=== PATIENT | female | born 2000 | race Caucasian/White ===

== ENCOUNTER 2023-11-25 14:41 | Observation (INO) ==
[2023-11-25 15:50] LABS: Hematocrit 27.1 % (35-45); Hemoglobin 9.6 g/dL (11.5-14.3); Mean Corpuscular Hemoglobin 32.4 pg (27-33); Mean Corpuscular Hgb Conc 35.6 g/dL (31-36); Mean Corpuscular Volume 91.1 fL (80-97); Red Blood Count 2.97 10^6/uL (3.63-4.92); Red Cell Distribution Width 20.3 % (12-17); White Blood Count 0.2 10^3/uL (3.8-11.8)
[2023-11-25 16:22] LABS: ABS Lymphocytes 0.2 10^3/uL (1.0-4.8); Eosinophil % 1.4 %; Lymphocyte % 96.8 %; Mean Platelet Volume 12.2 fL (7.5-11.2); Platelet Count 12 10^3/uL (150-450)
[2023-11-26 00:19] LABS: Mean Platelet Volume 8.9 fL (7.5-11.2); Platelet Count 18 10^3/uL (150-450)
[2023-11-26 07:39] LABS: Hematocrit 23.4 % (35-45); Hemoglobin 8.5 g/dL (11.5-14.3); Mean Corpuscular Hemoglobin 32.9 pg (27-33); Mean Corpuscular Hgb Conc 36.2 g/dL (31-36); Mean Corpuscular Volume 90.9 fL (80-97); Mean Platelet Volume 9.4 fL (7.5-11.2); Platelet Count 17 10^3/uL (150-450); Red Blood Count 2.57 10^6/uL (3.63-4.92); Red Cell Distribution Width 19.7 % (12-17); White Blood Count 0.2 10^3/uL (3.8-11.8)
[2023-11-26 07:54] LABS: Albumin 4.2 g/dL (3.2-5.2); Albumin/Globulin Ratio 1.6 (1-3); Calcium 9.1 mg/dL (8.6-10.3); Creatinine, Serum 0.54 mg/dL (0.51-0.95); Globulin 2.6 g/dL (2-4); Potassium 4.2 mmol/L (3.5-5.0); Total Bilirubin 0.6 mg/dL (0.2-1.0); Total Protein 6.8 g/dL (6.4-8.9); eGFR CKD-EPI 130.9 (>60)
[2023-11-26 08:43] LABS: ABS Lymphocytes 0.2 10^3/uL (1.0-4.8); Eosinophil % 0.2 %; Lymphocyte % 97.3 %
[2023-11-26 13:12] VITALS: BP 108/82
== END 2023-11-26 13:55 | disposition home or self-care (01) ==
LOC: MED 14:41 → CHOA 14:41
PROVIDERS: ADMIT Internal Medicine Hematology & Oncology; ATTEND Internal Medicine Hematology

== ENCOUNTER 2023-11-29 08:03 | Inpatient (IN) ==
[2023-11-29] MEDS: Cefepime 1 GM in Dextrose 1 GM/50 ML BAG IV ONE (09:04)
[2023-11-29] MEDS: Lactated Ringers 1000 ml BAG 1,000 ML IV ONE ×2 (09:05→10:26)
[2023-11-29 09:42] LABS: Hematocrit 20.7 % (35-45); Hemoglobin 7.6 g/dL (11.5-14.3); Mean Corpuscular Hemoglobin 32.2 pg (27-33); Mean Corpuscular Hgb Conc 36.8 g/dL (31-36); Mean Corpuscular Volume 87.7 fL (80-97); Mean Platelet Volume 9.8 fL (7.5-11.2); Platelet Count 16 10^3/uL (150-450); Red Blood Count 2.36 10^6/uL (3.63-4.92); Red Cell Distribution Width 19.2 % (12-17); White Blood Count 0.1 10^3/uL (3.8-11.8)
[2023-11-29 10:00] LABS: Albumin 4.2 g/dL (3.2-5.2); Albumin/Globulin Ratio 1.4 (1-3); C Reactive Protein 209.64 mg/L (<8.01); Calcium 8.8 mg/dL (8.6-10.3); Creatinine, Serum 0.83 mg/dL (0.51-0.95); Globulin 2.9 g/dL (2-4); Total Bilirubin 0.9 mg/dL (0.2-1.0); Total Protein 7.1 g/dL (6.4-8.9); eGFR CKD-EPI 100.3 (>60)
[2023-11-29] MEDS: Vancomycin 1,500 MG in NS 0.9% 250 ml 250 ML IVPB ONE (10:08)
[2023-11-29 10:22] LABS: ABS Lymphocytes 0.1 10^3/uL (1.0-4.8); Eosinophil % 1.3 %; Lymphocyte % 83.2 %
[2023-11-29] MEDS ORDERED: Vancomycin 1,000 MG in NS 0.9% 250 ml 250 ML IVPB ONE (11:50)
[2023-11-29] MEDS ORDERED: Vancomycin per Pharmacy 1 EA NOTE FOLLOW UP SCH (12:00)
[2023-11-29 12:50] LABS: Urine Appearance Clear; Urine Bilirubin Negative (Negative); Urine Blood Negative (Negative); Urine Color Light-Yellow; Urine Glucose Negative (Negative); Urine Ketones Negative (Negative); Urine Nitrite Negative (Negative); Urine Protein Trace (Negative); Urine Specific Gravity 1.012 (1.002-1.030); Urine Urobilinogen Negative (Negative); Urine pH 5.5 (5.0-8.0)
[2023-11-29] MEDS ORDERED: Magnesium Hydroxide LIQ 30 ML UDC PO PRN (13:21)
[2023-11-29 13:23] LABS: Calcium 8.2 mg/dL (8.6-10.3); Creatinine, Serum 0.65 mg/dL (0.51-0.95); eGFR CKD-EPI 125.2 (>60)
[2023-11-29] MEDS: Potassium Chlor 20 meq TAB.ER PO ONE (13:43)
[2023-11-29] MEDS: Lactated Ringers 1000 ml BAG 1,000 ML IV SCH (13:49)
[2023-11-29] MEDS: Vancomycin 1,250 MG in NS 0.9% 250 ml 250 ML IVPB SCH (17:52)
[2023-11-29] MEDS: Ondansetron ODT 4 mg TAB 4 MG TAB PO PRN (18:42)
[2023-11-29] MEDS: Cefepime 2 GM in Dextrose 2 GM/50 ML BAG IV SCH (21:40)
[2023-11-30 06:55] LABS: Calcium 9.1 mg/dL (8.6-10.3); Creatinine, Serum 0.54 mg/dL (0.51-0.95); Potassium 3.6 mmol/L (3.5-5.0); eGFR CKD-EPI 130.9 (>60)
[2023-11-30 06:58] LABS: Hematocrit 17.7 % (35-45); Hemoglobin 6.4 g/dL (11.5-14.3); Mean Corpuscular Hemoglobin 31.9 pg (27-33); Mean Corpuscular Hgb Conc 36.4 g/dL (31-36); Mean Corpuscular Volume 87.5 fL (80-97); Mean Platelet Volume 10.9 fL (7.5-11.2); Platelet Count 10 10^3/uL (150-450); Red Blood Count 2.02 10^6/uL (3.63-4.92); Red Cell Distribution Width 19.1 % (12-17); White Blood Count 0.2 10^3/uL (3.8-11.8)
[2023-11-30 07:28] LABS: ABS Lymphocytes 0.1 10^3/uL (1.0-4.8); ABS Neutrophils 0.1 10^3/uL (1.5-7.6); Eosinophil % 0.2 %; Lymphocyte % 45.7 %; Nucleated Red Blood Cells % 0.5 %/100WBC (0.0-0.8)
[2023-11-30] MEDS: Vancomycin Trough Check NOTE FOLLOW UP ONE (09:20)
[2023-11-30] MEDS: Vancomycin 1,500 MG in NS 0.9% 250 ml 250 ML IVPB SCH ×2 (19:21→22:44)
[2023-12-01 06:41] LABS: Calcium 8.5 mg/dL (8.6-10.3); Creatinine, Serum 0.55 mg/dL (0.51-0.95); Potassium 3.4 mmol/L (3.5-5.0); eGFR CKD-EPI 130.4 (>60)
[2023-12-01 07:23] LABS: Hematocrit 17.6 % (35-45); Hemoglobin 6.5 g/dL (11.5-14.3); Mean Corpuscular Hemoglobin 31.9 pg (27-33); Mean Corpuscular Hgb Conc 36.7 g/dL (31-36); Mean Corpuscular Volume 86.8 fL (80-97); Red Blood Count 2.03 10^6/uL (3.63-4.92); White Blood Count 0.6 10^3/uL (3.8-11.8)
[2023-12-01 07:51] LABS: Mean Platelet Volume 9.8 fL (7.5-11.2); Platelet Count 13 10^3/uL (150-450)
[2023-12-01 10:00] LABS: ABS Lymphocytes 0.2 10^3/uL (1.0-4.8); ABS Monocytes 0.1 10^3/uL (0.0-0.9); ABS Neutrophils 0.3 10^3/uL (1.5-7.6); Eosinophil % 0.1 %; Lymphocyte % 39.6 %; Nucleated Red Blood Cells % 0.6 %/100WBC (0.0-0.8)
[2023-12-01 14:22] LABS: Cytomegalovirus IgG Antibody Positive (Negative)
[2023-12-01] MEDS: Potassium Chlor 20 meq TAB.ER PO ONE (15:56)
[2023-12-02] MEDS: Vancomycin 1,500 MG in NS 0.9% 250 ml 250 ML IVPB SCH (01:19)
[2023-12-02] MEDS: Alteplase (CATHFLO) 2 MG VIAL IV ONE (03:59)
[2023-12-02 06:49] LABS: Hematocrit 25.1 % (35-45); Mean Corpuscular Hemoglobin 31.4 pg (27-33); Mean Corpuscular Hgb Conc 35.8 g/dL (31-36); Mean Corpuscular Volume 87.9 fL (80-97); Mean Platelet Volume 10.2 fL (7.5-11.2); Platelet Count 13 10^3/uL (150-450); Red Blood Count 2.85 10^6/uL (3.63-4.92); Red Cell Distribution Width 17.1 % (12-17); White Blood Count 1.5 10^3/uL (3.8-11.8)
[2023-12-02 08:01] LABS: ABS Neutrophils 0.9 10^3/uL (1.5-7.6)
[2023-12-02 08:35] LABS: ABS Lymphocytes 0.3 10^3/uL (1.0-4.8); ABS Monocytes 0.2 10^3/uL (0.0-0.9); Anisocytosis 1+; Lymphocyte % 22.8 %; Nucleated Red Blood Cells % 0.2 %/100WBC (0.0-0.8)
[2023-12-02] MEDS: Vancomycin Trough Check NOTE FOLLOW UP ONE (09:56)
[2023-12-02 17:31] VITALS: BP 111/92
== END 2023-12-02 18:10 | disposition home or self-care (01) | DRG 720 ==
LOC: EDHOLD 08:03 → ED 08:03 → OBSVTOIN 09:18 → MED 09:30 → SUATTDRO 09:30 → MED 11:46
PROVIDERS: ADMIT Internal Medicine; ATTEND Student in an Organized Health Care Education/Training Program